=== PATIENT | male | born 1985 | race Caucasian/White ===

== ENCOUNTER 2016-07-13 08:30 | Emergency (ER) | payer OTHER ==
[~2016-07-13] VITALS: Ht 182.9 cm; Wt 100.3 kg
[2016-07-13] MEDS ORDERED: AZITHROMYCIN250 MG1 PO (10:44)
[2016-07-13] MEDS ORDERED: FIORICET,ESG1 TABLET PO (10:44)
[2016-07-13] MEDS ORDERED: TESSALON200 MG PO (10:44)
[2016-07-13 11:27] VITALS: BP 150/71
== END 2016-07-13 11:28 | disposition home or self-care (01) ==
LOC: EME 08:30
DX: R51 Headache (principal); J20.9 Acute bronchitis, unspecified; F17.200 Nicotine dependence, unspecified, uncomplicated; J45.909 Unspecified asthma, uncomplicated
CPT/HCPCS: 70450; 71020; 99281; 99284

== ENCOUNTER 2017-01-09 10:34 | Day surgery (SDC) | payer OTHER ==
[~2017-01-09] VITALS: Ht 182.9 cm; Wt 105.8 kg
[~2017-01-09 10:34] MED LIST: AZITHROMYCIN250 MG1 PO; FIORICET,ESG1 TABLET PO; TESSALON200 MG PO
[2017-01-09 11:21] LABS: HEMATOCRIT 45.8 % (38.0-50.0); MCH 27.5 PG (29.0-34.0); MCHC 32.3 G/DL (30.0-36.0); MEAN PLAT.VOLUME 9.7 uM^3 (9.0-12.4); PLATELET COUNT 301 K/uL (156-360); RBC DIS.WIDTH-CV 13.5 % (11.8-14.6); RED BLOOD COUNT 5.39 M/uL (4.00-5.50); WHITE BLOOD COUNT 11.5 K/uL (4.1-10.2)
[2017-01-09 11:29] LABS: CHLORIDE 103 mEq/L (99-109); POTASSIUM 4.2 mEq/L (3.7-5.4); SODIUM 140 mEq/L (136-147)
[2017-01-09 11:31] LABS: GLUCOSE 102 mg/dL (70-99)
[2017-01-09 11:33] LABS: ANION GAP 13 MEQ/L (2-14); TOTAL BILIRUBIN 0.7 mg/dL (0.0-1.0)
[2017-01-09 11:35] LABS: ALKALINE PHOSPHATASE 67 IU/L (3-129); GFR ESTIMATE (CALCULATED) > 59 mL/min/
[2017-01-09 11:36] LABS: UREA NITROGEN (BUN) 12 mg/dL (9-23)
[2017-01-09] MEDS ORDERED: BUSPIRONE HCL10 MG PO (14:39)
[2017-01-09 14:40] LABS: ADD MIUA? YES; BILIRUBIN NEGATIVE; BLOOD NEGATIVE; COLOR YELLOW ((YELLOW)); GLUCOSE (STRIP) NEGATIVE; KETONES NEGATIVE; LEUKOCYTES NEGATIVE; NITRITE NEGATIVE; PROTEIN (STRIP) NEGATIVE; SPECIFIC GRAVITY 1.015 (1.000-1.030); UROBILINOGEN 0.2 MG/DL (0.2-1.0)
[2017-01-09 14:46] LABS: BACTERIA RARE /HPF; CALCIUM OXALATE CRYSTALS 1+ /HPF; EPITHELIAL CELLS NONE SEEN /HPF; GRANULAR CASTS 0-5 /LPF; MUCUS TRACE /LPF; RED BLOOD CELLS 0-5 /HPF (0-5); UCUL ADDED? NO; WHITE BLOOD CELLS 0-5 /HPF (0-5)
[2017-01-09] MEDS ORDERED: COLACE100 MG PO (17:50)
[2017-01-09] MEDS ORDERED: PERCOCET 5/31 TABLET PO (17:50)
[2017-01-09 21:09] VITALS: BP 136/80
[2017-01-09 23:31] VITALS: BP 119/68
[2017-01-10 03:27] VITALS: BP 114/55
[2017-01-10 07:03] VITALS: BP 124/55
== END 2017-01-10 10:08 | disposition home or self-care (01) ==
LOC: EME 10:34 → SDC 17:28 → 2SOUTH 17:30 → ENRESERV 18:03 → 2EAST 20:29
PROC: 0DTJ4ZZ Resection of Appendix, Percutaneous Endoscopic Approach (ICD-10-PCS; principal; 2017-01-09)
DX: K35.80 Unspecified acute appendicitis (principal); K40.90 Unilateral inguinal hernia, without obstruction or gangrene, not specified as recurrent; J45.909 Unspecified asthma, uncomplicated; F41.9 Anxiety disorder, unspecified; F17.210 Nicotine dependence, cigarettes, uncomplicated; F12.90 Cannabis use, unspecified, uncomplicated
CPT/HCPCS: 74177; 76870; 80053; 81003; 85027; 88304; 99281; 99284; G0378; J0330; J1100; J1170; J1885; J2250; J2270; J2405; J3010; J7030

== ENCOUNTER 2017-08-18 17:33 | Emergency (ER) | payer OTHER ==
[~2017-08-18] VITALS: Ht 182.9 cm; Wt 108.4 kg
[~2017-08-18 17:33] MED LIST changes: +BUSPIRONE HCL10 MG PO; +COLACE100 MG PO; +EXCEDRIN MIGRA1 EAC3 PO; +NORCO 5/3251 TABLET PO; +PERCOCET 5/31 TABLET PO
[2017-08-18 18:57] LABS: HEMOGLOBIN 14.9 G/DL (12.5-16.6); MCH 27.8 PG (29.0-34.0); MCHC 33.1 G/DL (30.0-36.0); RBC DIS.WIDTH-CV 13.3 % (11.8-14.6); RBC DIS.WIDTH-SD 40.7 % (39-53); RED BLOOD COUNT 5.36 M/uL (4.00-5.50); WHITE BLOOD COUNT 13.1 K/uL (4.1-10.2)
[2017-08-18 19:41] LABS: MONOSPOT (MONONUCLEOSIS SEROL) NEGATIVE
[2017-08-18 20:02] LABS: PLAT.SUFFICIENCY ADEQUATE; PLATELET COUNT 292 K/uL (156-360)
[2017-08-18 20:19] VITALS: BP 140/87
== END 2017-08-18 20:19 | disposition home or self-care (01) ==
LOC: EME 17:33
PROVIDERS: Nurse Practitioner Family
DX: J02.0 Streptococcal pharyngitis (principal); R53.1 Weakness; J45.909 Unspecified asthma, uncomplicated; F41.9 Anxiety disorder, unspecified; F17.210 Nicotine dependence, cigarettes, uncomplicated
CPT/HCPCS: 85027; 86308; 87651 90; 99281; 99284; J0561; J1100

== ENCOUNTER 2017-12-03 17:06 | Emergency (ER) | payer OTHER ==
[~2017-12-03] VITALS: Ht 182.9 cm; Wt 109.6 kg
[2017-12-03] MEDS ORDERED: MOTRIN800 MG PO (18:44)
[2017-12-03] MEDS ORDERED: FLEXERIL10 MG PO (18:44)
[2017-12-03 19:16] VITALS: BP 142/92
== END 2017-12-03 19:15 | disposition home or self-care (01) ==
LOC: EME 17:06
DX: M25.511 Pain in right shoulder (principal)
CPT/HCPCS: 73030; 99281; 99284